=== PATIENT | male | born 1985 | race Caucasian/White ===

== ENCOUNTER 2017-07-24 17:04 | Emergency (ER) | payer BC, OTHER ==
[~2017-07-24 17:04] MED LIST: CLON.1 PO; DOXY100T PO; LORT7.5T3 PO; MYCOL15T TOP; SPIR50TA PO; SULF-154 PO; TOPR25TA2 PO; Z.0.NO CURRENT MEDS
[2017-07-24 17:11] VITALS: BP 163/92; PULSE 83; RESP 18; TEMP 98.3; O2SAT 99
[2017-07-24] MEDS ORDERED: CELE20TA PO (17:19)
[2017-07-24] MEDS ORDERED: METF500T PO (17:19)
[2017-07-24] MEDS ORDERED: METO50TA PO (17:19)
[2017-07-24] MEDS ORDERED: SODIUM CHLOR 0.9% 1000 ML INJ 1,000 ML IV SCH (17:27)
[2017-07-24] MEDS ORDERED: SODIUM CHLORIDE 0.9% FLUSH 10 ML FLUSH IVF PRN (17:30)
[2017-07-24] MEDS ORDERED: MORPHINE SULFATE 4 MG/ML INJ IV ONE (17:30)
[2017-07-24] MEDS ORDERED: ONDANSETRON HCL 4 MG/2 ML VIAL IVP ONE (17:30)
--- NOTE | 2017-07-24 17:41 | PD ---
HPI Chief Complaint: Fall Time Seen by Provider: 17:23 Travel History International Travel<30 days: No Contact w/Intl Traveler<30days: No Traveled to known affect area: No History of Present Illness HPI 32 y/o male presents with s/p slip and fall off ladder landing on his right side. He states he did not hit his head or have LOC. He is not on any blood thinnners. He notes pain to his left wrist and right shoulder. pain is sharp. severity is moderate. pain is worse with movement. he denies other concerns PFSH Past Medical History Anxiety: Yes Diabetes: Yes Patient Takes Glucophage: Yes Diminished Hearing: No Hypertension: Yes Immunizations Current: No Influenza Vaccination: No ?: Not Past Surgical History Other Surgery: Yes (LIVER BIOPSY) Social History Alcohol Use: No Tobacco Use: No (vaps) Substance Use: No Allergies-Medications (Allergen,Severity, Reaction): Coded Allergies: No Known Allergies (Verified , 07/24/17) Reported Meds & Prescriptions Reported Meds & Active Scripts Active Percocet (Oxycodone-Acetaminophen) 5-325 mg Tab 1 Tab PO Q6H PRN Reported Celexa (Citalopram Hydrobromide) 20 Mg Tab 20 Mg PO DAILY Metformin (Metformin HCl) 500 Mg Tab 500 Mg PO BIDPC With meals Metoprolol Tartrate 50 Mg Tab 50 Mg PO DAILY Review of Systems Except as stated in HPI: all other systems reviewed are Neg Physical Exam Narrative General: 32 y/o patient in no apparent distress Skin: trauma noted to right shoulder with abrasion Eyes: pupils equal, eomi ENT: no septal hematoma NECK: no pain with palpation and ROM in midline, nexus criteria negative Cardiovascular: Regular rate and rhythm Respiratory: normal respiratory effort noted, clear to auscultation bilaterally Abdomen: soft, ttp in ruq, nondistended Back: No step-offs, midline spine nontender with palpation Extremities: Pain with palpation of right shoulder, left wrist, no lacerations over, neurovascularly intact, no pain with palpation of other joints Neuro: awake, alert, sensation and motor grossly intact Data Data Last Documented VS Vital Signs Date Time Temp Pulse Resp B/P (MAP) Pulse Ox O2 Delivery O2 Flow Rate FiO2 07/24/17 19:42 84 20 97 07/24/17 19:37 07/24/17 19:30 98.4 07/24/17 18:46 Room Air Orders Orders Basic Metabolic Panel (Bmp) (07/24/17 17:27) Complete Blood Count With Diff (07/24/17 17:27) Type And Screen (07/24/17 17:27) Ct Abd/Pel W Iv Contrast(Rout) (07/24/17 17:27) Iv Access Insert/Monitor (07/24/17 17:27) Ecg Monitoring (07/24/17 17:27) Oximetry (07/24/17 17:27) Morphine Inj (Morphine Inj) (07/24/17 17:30) Ondansetron Inj (Zofran Inj) (07/24/17 17:30) Sodium Chlor 0.9% 1000 Ml Inj (Ns 1000 M (07/24/17 17:27) Sodium Chloride 0.9% Flush (Ns Flush) (07/24/17 17:30) Shoulder, Complete (>2vws) (07/24/17 17:27) Wrist, Complete ([id number]) (07/24/17 17:27) Chest, Pa & Lat (07/24/17 ) Iohexol 350 Inj (Omnipaque 350 Inj) (07/24/17 18:28) Blood Glucose (07/24/17 18:45) Resp Incentive Spirometry (07/24/17 ) Labs Laboratory Tests Test 07/24/17 17:35 White Blood Count 11.6 TH/MM3 Red Blood Count 5.17 MIL/MM3 Hemoglobin 14.7 GM/DL Hematocrit 43.9 % Mean Corpuscular Volume 84.9 FL Mean Corpuscular Hemoglobin 28.4 PG Mean Corpuscular Hemoglobin Concent 33.4 % Red Cell Distribution Width 13.0 % Platelet Count 217 TH/MM3 Mean Platelet Volume 10.5 FL Neutrophils (%) (Auto) 75.2 % Lymphocytes (%) (Auto) 15.4 % Monocytes (%) (Auto) 7.1 % Eosinophils (%) (Auto) 1.1 % Basophils (%) (Auto) 1.2 % Neutrophils # (Auto) 8.8 TH/MM3 Lymphocytes # (Auto) 1.8 TH/MM3 Monocytes # (Auto) 0.8 TH/MM3 Eosinophils # (Auto) 0.1 TH/MM3 Basophils # (Auto) 0.1 TH/MM3 CBC Comment DIFF FINAL Differential Comment Blood Urea Nitrogen 11 MG/DL Creatinine 1.10 MG/DL Random Glucose 415 MG/DL Calcium Level 9.2 MG/DL Sodium Level 134 MEQ/L Potassium Level 4.6 MEQ/L Chloride Level 101 MEQ/L Carbon Dioxide Level 21.2 MEQ/L Anion Gap 12 MEQ/L Estimat Glomerular Filtration Rate 79 ML/MIN MDM Medical Decision Making Medical Screen Exam Complete: Yes Emergency Medical Condition: Yes Medical Record Reviewed: Yes (pmh confirmed) Interpretation(s) CBC & BMP Diagram 07/24/17 17:35 Calcium Level 9.2 Patient notes having soda and sandwich shortly prior to arrival, glucose on own 316 Last 24 hours Impressions Wrist X-Ray 07/24/171726 Signed Impressions: Service Date/Time: Monday, July 24, 2017 18:07 - CONCLUSION: Normal examination for a patient of this age. Raymundo Mcclellan MD Shoulder X-Ray [id number]/24/171726 Signed Impressions: Service Date/Time: Monday, July 24, 2017 18:13 - CONCLUSION: Normal examination for a patient of this age. Raymundo Mcclellan MD Abdomen/Pelvis CT [id number]/24/171726 Signed Impressions: Service Date/Time: Monday, July 24, 2017 18:23 - CONCLUSION: 1. Nondisplaced fractures right anterior fifth and sixth ribs. No pneumothorax or hemothorax. No acute traumatic injury within the abdomen or pelvis. Fatty liver. Raymundo Mcclellan MD Chest X-Ray 07/24/17 0000 Signed Impressions: Service Date/Time: Monday, July 24, 2017 18:12 - CONCLUSION: Normal examination for a patient of this age. Raymundo Mcclellan MD Differential Diagnosis pneumothorax, fracture, strain, intra-abdominal injury.... Narrative Course will check labs, imaging and reeval after morphine and zofran ed workup with 2 nondisplaced rib fractures, Patient denies any new complaints and states that they are feeling better. Patient happy with care, all questions answered. Patient knows that follow up is incumbent on them and to return to the emergency room immediately if new or worsening symptoms develop. Patient given strict return precautions, vitals reviewed and are normal, offered observation for pain control but wanting to go home. We will provide with incentive spirometer and Percocet prescription Diagnosis Primary Impression: Closed rib fracture Qualified Codes: S22.41XA - Multiple fractures of ribs, right side, initial encounter for closed fracture Patient Instructions: General Instructions Additional Instructions: use incentive spirometer every hour while awake, return as needed, percocet as needed for severe pain, closely monitor your sugars, follow with primary tommorrow Med/Other Pt SpecificInfo: Prescription(s) given Scripts Oxycodone-Acetaminophen (Percocet) 5-325 mg Tab 1 TAB PO Q6H Y for PAIN, #20 TAB 0 Refills Prov: Edith Reynoso MD 07/24/17 Disposition: 01 DISCHARGE HOME Condition: Stable Edith Reynoso MD Jul 24, 2017 17:41
[2017-07-24 17:46] LABS: AUTOMATED NEUTROPHIL # 8.8 TH/MM3 (1.8-7.7); BASOPHIL # 0.1 TH/MM3 (0-0.2); BASOPHIL % 1.2 % (0.0-2.0); EOSINOPHIL # 0.1 TH/MM3 (0-0.4); EOSINOPHIL % 1.1 % (0.0-4.0); HEMATOCRIT 43.9 % (39.0-51.0); LYMPH % 15.4 % (9.0-44.0); LYMPHOCYTE # 1.8 TH/MM3 (1.0-4.8); MEAN CELL VOLUME 84.9 FL (80.0-100.0); MEAN CORPUSCULAR HEMOGLOBIN 28.4 PG (27.0-34.0); MEAN CORPUSCULAR HGB CONC 33.4 % (32.0-36.0); MONO % 7.1 % (0.0-8.0); NEUT % 75.2 % (16.0-70.0); PLATELET COUNT 217 TH/MM3 (150-450); RED BLOOD COUNT 5.17 MIL/MM3 (4.50-5.90); WHITE BLOOD COUNT 11.6 TH/MM3 (4.0-11.0)
[2017-07-24 17:47] VITALS: BP 135/81; PULSE 92; RESP 20; O2SAT 98
[2017-07-24 17:49] LABS: HEMO FLAGS DIFF FINAL
[2017-07-24 17:54] LABS: POTASSIUM 4.6 MEQ/L (3.5-5.1)
[2017-07-24 18:01] LABS: BICARBONATE 21.2 MEQ/L (21.0-32.0)
[2017-07-24] MEDS ORDERED: IOHEXOL 350 MG/ML 10 ML VIAL (for RAD DIAG) IVCONTRAST ONE (18:28)
--- NOTE | 2017-07-24 18:40 | RADRPT ---
EXAM DATE/TIME: 07/24/2017 18:07 [facility] COMPARISON: No previous studies available for comparison. INDICATIONS : Left wrist pain after falling from a ladder today, approximately 6 feet. MEDICAL HISTORY : None. SURGICAL HISTORY : None. ENCOUNTER: Initial ACUITY: 1 day PAIN SCORE: 8/10 LOCATION: Left wrist. FINDINGS: Three view examination of the left wrist demonstrates no soft tissue swelling, dislocation, or fractu re. The carpal bones are in normal alignment. The joint spaces are maintained. Bony mineralization is normal. CONCLUSION: Normal examination for a patient of this age. Raymundo Mcclellan MD on July 24, 2017 at 18:37 Board Certified Radiologist. This report was verified electronically.
--- NOTE | 2017-07-24 18:41 | RADRPT ---
EXAM DATE/TIME: 07/24/2017 18:12 [facility] COMPARISON: No previous studies available for comparison. INDICATIONS : Left posterior rib pain after falling from a ladder today, approximately 6 feet. MEDICAL HISTORY : None. SURGICAL HISTORY : None. ENCOUNTER: Initial ACUITY: 1 day PAIN SCORE: 8/10 LOCATION: Left posterior chest. FINDINGS: PA and lateral views of the chest demonstrate the lungs to be symmetrically aerated without evidence of mass, infiltrate or effusion. The cardiomediastinal contours are unremarkable. Osseous structure s are intact. CONCLUSION: Normal examination for a patient of this age. Raymundo Mcclellan MD on July 24, 2017 at 18:39 Board Certified Radiologist. This report was verified electronically.
--- NOTE | 2017-07-24 18:42 | RADRPT ---
EXAM DATE/TIME: 07/24/2017 18:13 [facility] COMPARISON: No previous studies available for comparison. INDICATIONS : Right posterior shoulder pain after falling from a ladder today, approximately 6 feet. MEDICAL HISTORY : None. SURGICAL HISTORY : None. ENCOUNTER: Initial ACUITY: 1 day PAIN SCORE: 8/10 LOCATION: Right posterior shoulder. FINDINGS: Multiple view examination of the right shoulder demonstrates no evidence of fracture or dislocation. The glenohumeral and acromioclavicular joints are maintained. There is normal range of motion betwe en internal and external rotation. Bony mineralization is normal. CONCLUSION: Normal examination for a patient of this age. Raymundo Mcclellan MD on July 24, 2017 at 18:40 Board Certified Radiologist. This report was verified electronically.
[2017-07-24 18:46] VITALS: BP 154/79; PULSE 85; RESP 18; O2SAT 97
--- NOTE | 2017-07-24 18:49 | RADRPT ---
EXAM DATE/TIME: 07/24/2017 18:23 [facility] COMPARISON: No previous studies available for comparison. INDICATIONS : Fell off of ladder. Right sided pain. IV CONTRAST: 95 cc Omnipaque 350 (iohexol) IV ORAL CONTRAST: No oral contrast ingested. RADIATION DOSE: 21.95 CTDIvol (mGy) MEDICAL HISTORY : Hypertension. Diabetes. SURGICAL HISTORY : None. ENCOUNTER: Initial ACUITY: 1 day PAIN SCALE: 4/10 LOCATION: Right abdomen TECHNIQUE: Volumetric scanning of the abdomen and pelvis was performed. Using automated exposure control and ad justment of the mA and/or kV according to patient size, radiation dose was kept as low as reasonably achievable to obtain optimal diagnostic quality images. DICOM format image data is available electro nically for review and comparison. FINDINGS: LOWER LUNGS: The visualized lower lungs are clear. LIVER: Homogeneous density without lesion. There is no dilation of the biliary tree. No calcified gallston es. SPLEEN: Normal size without lesion. PANCREAS: Within normal limits. KIDNEYS: Normal in size and shape. There is no mass, stone or hydronephrosis. ADRENAL GLANDS: Within normal limits. VASCULAR: There is no aortic aneurysm. BOWEL/MESENTERY: The stomach, small bowel, and colon demonstrate no acute abnormality. There is no free intraperitone al air or fluid. ABDOMINAL WALL: Within normal limits. RETROPERITONEUM: There is no lymphadenopathy. BLADDER: No wall thickening or mass. REPRODUCTIVE: Within normal limits. INGUINAL: There is no lymphadenopathy or hernia. MUSCULOSKELETAL: Elderly nondisplaced right anterior fifth and sixth rib fractures. CONCLUSION: 1. Nondisplaced fractures right anterior fifth and sixth ribs. No pneumothorax or hemothorax. No acut e traumatic injury within the abdomen or pelvis. Fatty liver. Raymundo Mcclellan MD on July 24, 2017 at 18:42 Board Certified Radiologist. This report was verified electronically.
[2017-07-24] MEDS ORDERED: PERC5TAB12 PO (18:58)
[2017-07-24 19:30] VITALS: BP 138/74; TEMP 98.4
== END 2017-07-24 19:45 | disposition home or self-care (01) ==
LOC: PHED 17:04
DX: S22.41XA Multiple fractures of ribs, right side, initial encounter for closed fracture (principal); M25.532 Pain in left wrist; M25.511 Pain in right shoulder; I10 Essential (primary) hypertension; E11.9 Type 2 diabetes mellitus without complications; F17.200 Nicotine dependence, unspecified, uncomplicated; W11.XXXA Fall on and from ladder, initial encounter; Y99.8 Other external cause status
CPT/HCPCS: 71020; 73030; 73110; 74177; 80048; 85025; 86850; 86900; 86901; 94150; 96361; 96374; 96375; 99285; J2270; J2405; J7030; Q9967

== ENCOUNTER 2018-03-20 20:22 | Emergency (ER) | payer BC ==
[~2018-03-20] VITALS: Ht 165.1 cm; Wt 114.6 kg
[~2018-03-20 20:22] MED LIST changes: +CELE20TA PO; -CLON.1 PO; -DOXY100T PO; -LORT7.5T3 PO; +METF500T PO; +METO50TA PO; -MYCOL15T TOP; +PERC5TAB12 PO; -SPIR50TA PO; -SULF-154 PO; -TOPR25TA2 PO; -Z.0.NO CURRENT MEDS
[2018-03-20 20:25] VITALS: BP 145/83; PULSE 108; RESP 18; TEMP 99.3; O2SAT 96
[2018-03-20 20:33] VITALS: BP 145/83; PULSE 108; RESP 18; TEMP 99.3; O2SAT 96
[2018-03-20] MEDS ORDERED: DULO1CAP PO (20:41)
--- NOTE | 2018-03-20 21:00 | PD ---
HPI Chief Complaint: Skin Problem Time Seen by Provider: 20:46 Travel History International Travel<30 days: No Contact w/Intl Traveler<30days: No Traveled to known affect area: No History of Present Illness HPI This is a 32-year-old male here for evaluation of painful insect bite to his left thigh 2 days. Denies fever chills. Does not recall specific insect bite. Area is tender to touch. No associating symptoms. PFSH Past Medical History Anxiety: Yes Cardiovascular Problems: Yes (HTN) Diabetes: Yes Patient Takes Glucophage: Yes (03/20/18 0530) Diminished Hearing: No Hypertension: Yes Immunizations Current: No Tetanus Vaccination: < 5 Years Influenza Vaccination: Yes Past Surgical History Surgical History: No Previous Surgery Other Surgery: Yes (LIVER BIOPSY) Social History Alcohol Use: No Tobacco Use: No Substance Use: No Allergies-Medications (Allergen,Severity, Reaction): Coded Allergies: No Known Allergies (Verified Adverse Reaction, Unknown, 03/20/18) Reported Meds & Prescriptions Reported Meds & Active Scripts Active Reported Duloxetine DR (Duloxetine HCl) 20 Mg Capdr 20 Mg PO DAILY Metformin (Metformin HCl) 500 Mg Tab 500 Mg PO BIDPC With meals Metoprolol Tartrate 50 Mg Tab 50 Mg PO DAILY Review of Systems Except as stated in HPI: all other systems reviewed are Neg General / Constitutional: No: Fever Physical Exam Narrative GENERAL: Alert and well-appearing 32-year-old male SKIN: Warm and dry. 4 cm area of erythema and tenderness with 1 cm central area of induration. No fluctuance. No lymphangitis no drainage. HEAD: Normocephalic. EYES: No injection or drainage. NECK: Supple CARDIOVASCULAR: Regular rate and rhythm RESPIRATORY: Breath sounds equal bilaterally. No accessory muscle use. GASTROINTESTINAL: Abdomen soft, non-tender, nondistended. MUSCULOSKELETAL: No cyanosis, or edema. See skin noted above Data Data Last Documented VS Vital Signs Date Time Temp Pulse Resp B/P (MAP) Pulse Ox O2 Delivery O2 Flow Rate FiO2 03/20/18 20:33 99.3 108 18 145/83 (103) 96 MDM Medical Decision Making Medical Screen Exam Complete: Yes Emergency Medical Condition: Yes Differential Diagnosis Abscess, cellulitis, folliculitis Narrative Course 32-year-old male here with early abscess to his left lateral thigh. The area is not ready for drainage. He will be put on antibiotics and instructed to apply warm compresses and follow-up. Diagnosis Primary Impression: Abscess Referrals: Primary Care Physician Additional Instructions: Antibiotics as directed. Apply warm compresses to the area. Follow-up with your primary doctor. Scripts Clindamycin (Clindamycin) 300 Mg Cap 300 MG PO Q6H for Infection for 10 Days, #40 CAP 0 Refills Prov: Alma Jaime 03/20/18 Disposition: 01 DISCHARGE HOME Condition: Stable Alma Jaime March 20, 2018 21:00
[2018-03-20] MEDS ORDERED: CLIN300C5 PO (21:02)
== END 2018-03-20 21:28 | disposition home or self-care (01) ==
LOC: PHEFT 20:22
DX: L02.416 Cutaneous abscess of left lower limb (principal); F41.9 Anxiety disorder, unspecified; E11.9 Type 2 diabetes mellitus without complications; I10 Essential (primary) hypertension
CPT/HCPCS: 99283